=== PATIENT | female | born 1965 | race Caucasian/White ===

== ENCOUNTER 2023-09-20 08:24 | Outpatient (CLI) | payer MEDICAID | END 2023-09-20 23:59 | disposition home or self-care (01) | LOC: MRI 08:24 | PROVIDERS: ATTEND Physician Assistant Surgical | DX: S83.282A Other tear of lateral meniscus, current injury, left knee, initial encounter (principal); M94.261 Chondromalacia, right knee; M85.68 Other cyst of bone, other site; M16.11 Unilateral primary osteoarthritis, right hip; M25.461 Effusion, right knee; R60.9 Edema, unspecified; M71.21 Synovial cyst of popliteal space [Baker], right knee; M25.551 Pain in right hip; M51.37 Other intervertebral disc degeneration, lumbosacral region; M47.816 Spondylosis without myelopathy or radiculopathy, lumbar region; M54.50 Low back pain, unspecified; M17.11 Unilateral primary osteoarthritis, right knee; M25.561 Pain in right knee; X58.XXXA Exposure to other specified factors, initial encounter; Y93.89 Activity, other specified; Y92.89 Other specified places as the place of occurrence of the external cause; Y99.8 Other external cause status | CPT/HCPCS: 73721 ==